=== PATIENT | female | born 1995 | race American Indian/Alaskan Native ===

== ENCOUNTER 2018-12-24 14:45 | Outpatient (CLI) | payer OTHER ==
[2018-12-24] MEDS ORDERED: PRENATAL + DHA1 EAC1 PO (14:51)
== END 2018-12-25 14:11 | disposition home or self-care (01) ==
LOC: OBS/DEL 14:45
DX: O26.892 Other specified pregnancy related conditions, second trimester (principal); M54.5 Low back pain; Z34.02 Encounter for supervision of normal first pregnancy, second trimester

== ENCOUNTER 2019-04-22 15:15 | Inpatient (IN) | payer OTHER ==
[~2019-04-22] VITALS: Ht 160 cm; Wt 3.2 kg
[~2019-04-22 15:15] MED LIST: PRENATAL + DHA1 EAC1 PO
== END 2019-05-06 12:12 | disposition home or self-care (01) | DRG 807 ==
LOC: O/R 15:15 → OB/GYN 05-04 06:20 → LDR 05-04 06:20 → OB/GYN 05-04 14:32 → O/R 05-10 15:15
PROVIDERS: ADMIT Obstetrics & Gynecology
PROC: 10E0XZZ Delivery of Products of Conception, External Approach (ICD-10-PCS; principal; 2019-05-04)
PROC: 10907ZC Drainage of Amniotic Fluid, Therapeutic from Products of Conception, Via Natural or Artificial Opening (ICD-10-PCS; 2019-05-04)
PROC: 3E033VJ Introduction of Other Hormone into Peripheral Vein, Percutaneous Approach (ICD-10-PCS; 2019-05-04)
PROC: 4A1HXCZ Monitoring of Products of Conception, Cardiac Rate, External Approach (ICD-10-PCS; 2019-05-04)
DX: O80 Encounter for full-term uncomplicated delivery (principal); Z37.0 Single live birth; Z3A.38 38 weeks gestation of pregnancy

== ENCOUNTER 2020-12-24 15:15 | Inpatient (IN) | payer OTHER ==
[~2020-12-24] VITALS: Ht 160 cm; Wt 92.1 kg
== END 2021-01-11 14:44 | disposition home or self-care (01) | DRG 807 ==
LOC: LDR 01-09 09:22 → OB/GYN 01-09 09:22 → LDR 01-09 12:49 → OB/GYN 01-09 14:57 → SURH 01-11 15:15
PROVIDERS: ADMIT Obstetrics & Gynecology; ATTEND Obstetrics & Gynecology
PROC: 10D07Z3 Extraction of Products of Conception, Low Forceps, Via Natural or Artificial Opening (ICD-10-PCS; principal; 2021-01-09)
PROC: 4A1HXFZ Monitoring of Products of Conception, Cardiac Rhythm, External Approach (ICD-10-PCS; 2021-01-09)
PROC: 10907ZC Drainage of Amniotic Fluid, Therapeutic from Products of Conception, Via Natural or Artificial Opening (ICD-10-PCS; 2021-01-09)
DX: O69.0XX0 Labor and delivery complicated by prolapse of cord, not applicable or unspecified (principal); Z37.0 Single live birth; Z3A.39 39 weeks gestation of pregnancy; Z20.822 Contact with and (suspected) exposure to COVID-19